=== PATIENT | male | born 1995 | race Caucasian/White ===

== ENCOUNTER 2022-04-14 18:33 | Emergency (ER) | payer OTHER ==
[~2022-04-14] VITALS: Ht 170.2 cm; Wt 56.7 kg
[2022-04-14] MEDS ORDERED: LAMO25 PO (20:25)
[2022-04-14] MEDS ORDERED: Seroquel Xr50 MG PO (20:27)
== END 2022-04-14 20:48 | disposition home or self-care (01) ==
LOC: ER 18:33
DX: R07.89 Other chest pain (principal); E11.9 Type 2 diabetes mellitus without complications; Z79.899 Other long term (current) drug therapy
CPT/HCPCS: 71046